=== PATIENT | male | born 1975 | race Caucasian/White ===

== ENCOUNTER 2018-05-12 07:16 | Emergency (ER) | payer MEDICAID ==
[2018-05-12 07:24] VITALS: BP 140/93
[2018-05-12] MEDS ORDERED: LIDOCAINE VISCOUS 2% 15 ML UDC MM STA (07:36)
[2018-05-12] MEDS ORDERED: MAG HYDROX/AL HYDROX/SIMETH 30 ML UDC PO STA (07:36)
[2018-05-12] MEDS ORDERED: DEXAMETHASONE 10 MG/ML VIAL PO STA (07:36)
[2018-05-12] MEDS ORDERED: diphenhydrAMINE ELIXIR 25 MG/10 ML UDC PO STA (07:36)
--- NOTE | 2018-05-12 07:39 | ED Physician Documentation ---
History of Present Illness - Stated complaint Stated Complaint: THROAT PX - Chief complaint Chief Complaint: Heent - History obtained from History obtained from: Patient - History of Present Illness Timing: Other (multiple times over the past year) Pain level max: 8 Pain level now: 8 Improved by: nothing Worsened by: swallowing - Additonal information Additional information: Patient is a 42-year-old male who presents with sores in the posterior aspect of his oropharynx for the past year. Worsening today. States he was seen by ENT who performed extensive testing including biopsies and everything was "negative". Denies any fevers. States he was prescribed Magic mouthwash but has not taken it. He states he was also prescribed clonazepam but has not taken this either. Denies any GI symptoms. Review of Systems Constitutional: denies: Fever, Chills Nose: denies: Rhinorrhea / runny nose, Congestion, Epistaxis Respiratory: denies: Cough GI: denies: Abdominal Pain, Nausea, Vomiting, Diarrhea Skin: denies: Rash Musculoskeletal: denies: Neck pain, Back pain Neurologic: denies: Headache PD PAST MEDICAL HISTORY - Past Medical History Past Medical History: No - Past Surgical History Past Surgical History: No - Present Medications Home Medications: Ambulatory Orders Medication Instructions Recorded Confirmed Meloxicam [Mobic] 15 mg PO DAILY PRN #20 tablet 05/12/18 Mouthwash Compounding Base 227 0 ml MM Q4H #1 mouthwash 05/12/18 [Mouthwash-Om] predniSONE [Deltasone] 10 mg PO [id number] #42 tab 05/12/18 - Allergies Allergies/Adverse Reactions: Allergies Allergy/AdvReac Type Severity Reaction Status Date / Time codeine Allergy Anaphylaxis Verified 05/12/18 07:24 - Living Situation Living Arrangement: reports: At home - Family History Family history: reports: Non contributory PD ED PE NORMAL - Vitals Vital signs reviewed: Yes - General General: Alert and oriented X 3, No acute distress, Well developed/nourished - HEENT HEENT: PERRL, Ears normal, Moist mucous membranes, Other (Erythematous posterior oropharynx with a white ulceration to the uvula. Normal phonation. No trismus.) - Neck Neck: Supple, no meningeal sign, No bony TTP, No adenopathy - Cardiac Cardiac: RRR, Strong equal pulses - Respiratory Respiratory: No respiratory distress, Clear bilaterally - Derm Derm: Warm and dry, No rash - Neuro Neuro: Alert and oriented X 3 - Psych Psych: Normal mood, Normal affect Results - Vitals Vitals: Vital Signs - 24 hr 05/12/18 07:19 Temperature 36.1 C L Heart Rate 90 Respiratory 18 Rate Blood Pressure 140/93 H O2 Saturation 98 Oxygen O2 Source Room air PD MEDICAL DECISION MAKING - ED course Complexity details: reviewed results, re-evaluated patient, considered differential, d/w patient, d/w family ED course: Patient is a 42-year-old male with 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 I do not have access to his prior testing with the ENT. Rapid strep was sent in case there is a secondary infection causing this. He feels better after Magic mouthwash and will prescribe this for him as well. We will also trial on a steroid taper. Rapid strep is negative. We will continue supportive care and follow-up with his doctor. No trismus. Normal phonation. No stridor. Patient counseled regarding signs and symptoms for which I believe and urgent re-evaluation would be necessary. Patient with good understanding of and agreement to plan and is comfortable going home at this time This document was made in part using voice recognition software. While efforts are made to proofread this document, sound alike and grammatical errors may occur. - Sepsis Event Vital Signs: Vital Signs - 24 hr 05/12/18 07:19 Temperature 36.1 C L Heart Rate 90 Respiratory 18 Rate Blood Pressure 140/93 H O2 Saturation 98 Oxygen O2 Source Room air Departure - Departure Disposition: 01 Home, Self Care Clinical Impression: Pharyngitis Qualifiers: Pharyngitis/tonsillitis etiology: unspecified etiology Qualified Code(s): J02.9 - Acute pharyngitis, unspecified Condition: Good Instructions: ED Strep Pharyngitis Poss Follow-Up: your,doctor in 1 week [Other] Prescriptions: Meloxicam [Mobic] 15 mg PO DAILY PRN #20 tablet PRN Reason: pain Mouthwash Compounding Base 227 [Mouthwash-Om] 0 ml MM Q4H #1 mouthwash predniSONE [Deltasone] 10 mg PO [id number] #42 tab Comments: Return if you worsen. Use the medications as prescribed. Follow up with your doctor for further evaluation.
[2018-05-12] MEDS ORDERED: CHERRY SYRUP 10 ML UDC PO ONE (07:46)
== END 2018-05-12 08:05 | disposition home or self-care (01) ==
LOC: ED 07:16
DX: J02.9 Acute pharyngitis, unspecified (principal); J39.2 Other diseases of pharynx
CPT/HCPCS: 87070; 87430; 99283; A9270